=== PATIENT | female | born 2000 | race Hispanic/Latino ===

== ENCOUNTER 2019-02-07 12:44 | Emergency (ER) | payer OTHER ==
[~2019-02-07] VITALS: Ht 167.6 cm; Wt 44.9 kg
--- OUTSIDE RECORDS SUMMARY | 2019-02-07 12:47 | XMS REPORT | Encounter Summary ---
Author Organization Unknown Address [address] [place] [address] Phone [phone] Reason for Visit Immunization Instructions 1. Immunization Menveo D-[id number]-Dip (PF) 10 mcg-5 mcg/0.5 mL intramuscular kit 2. Counseling Discussion Note: None recorded. Patient educational handouts: No information available. Plan of Care Patient Instructions The meningococcal (say "nuo-zxf-vjs-[place]-kul") conjugate shot protects your child against a type of bacteria that causes meningitis and blood infections (sepsis). This vaccine is for children and for adults age 55 and younger. All children need two doses of the conjugate vaccine. They get one dose at age 11 or 12. They get the other at age 16. Teens and young adults ages 13 to 21 who haven't had these shots should get them as soon as possible. This includes college freshmen who live in dorms. If your child has a damaged or missing spleen or has certain immune system problems, he or she may need a booster dose every 5 years. Children at high risk Some children are at a higher risk than others to get meningitis and have severe problems from it. This includes children who have certain immune system problems or have a damaged or missing spleen. It also includes children who live in or will travel to areas of the world where the disease is common. Starting at age 2 months, these children need four separate doses of the MenHibrix vaccine before age 18 months. This vaccine protects against both meningitis and Hib infection. At age 2 years, at least one dose of meningococcal conjugate vaccine is needed. Children who remain at high risk need routine booster shots starting a few years after their first doses. The shot may cause pain in the area where the shot is given. It may also cause a fever. Follow-up care is a borjas part of your child's treatment and safety. Be sure to make and go to all appointments, and call your doctor if your child is having problems. It's also a good idea to know your child's test results and keep a list of the medicines your child takes. How can you care for your child at home? Give your child acetaminophen (Tylenol) or ibuprofen (Advil, Motrin) for fever or for pain at the shot area. Be safe with medicines. Read and follow all instructions on the label. Do not give aspirin to anyone younger than 20. It has been linked to Brien syndrome, a serious illness. Do not give a child two or more pain medicines at the same time unless the doctor told you to. Many pain medicines have acetaminophen, which is Tylenol. Too much acetaminophen (Tylenol) can be harmful. Put ice or a cold pack on the sore area for 10 to 20 minutes at a time. Put a thin cloth between the ice and your child's skin. When should you call for help? Call 911 anytime you think your child may need emergency care. For example, call if: Your child has a seizure. Your child has symptoms of a severe allergic reaction. These may include: Sudden raised, red areas (hives) all over the body. Swelling of the throat, mouth, lips, or tongue. Trouble breathing. Passing out (losing consciousness). Or your child may feel very lightheaded or suddenly feel weak, confused, or restless. Call your doctor now or seek immediate medical care if: Your child has symptoms of an allergic reaction, such as: A rash or hives (raised, red areas on the skin). Itching. Swelling. Belly pain, nausea, or vomiting. Your child has a high fever. Your child cries for 3 hours or more within 2 to 3 days after getting the shot. Watch closely for changes in your child's health, and be sure to contact your doctor if your child has any problems. Care instructions adapted under license by [facility]. This care instruction is for use with your licensed healthcare professional. If you have questions about a medical condition or this instruction, always ask your healthcare professional. [employer] disclaims any warranty or liability for your use of this information. Reminders Provider Appointments None recorded. Lab None recorded. Referral None recorded. Procedures None recorded. Surgeries None recorded. Imaging None recorded. Medications Name Start Date Flucelvax Quad 3444-2972 60 mcg (15 mcg x 4)/0.5 mL IM suspension IMMUNIZATION GIVEN Medications Administered None recorded. Vitals Height Weight BMI 4 ft 9 in 100 lbs 21.6 kg/m2 Lab Results None recorded. Allergies Code Code System Name Reaction Severity Status Onset NKDA Problems No Known Problems Procedures None recorded. Vaccine List Vaccine Type influenza, injectable, quadrivalent 02/21/2018 meningococcal MCV4O 09/08/20180.5 mL meningococcal MCV4P 09/30/2016 Social History None recorded. Past Encounters 09/08/2018 Immunization; Counseling TERRENCE Velez-C: [address] [place] [address], Ph. History of Present Illness Immunization Reported By: Patient HPI: Immunization Request (normal) no symptoms. Immunization eligibility questions No vaccines in last month, No reaction to previous vaccines:, No Known Allergies Note:18 YO female here for Meningitis vaccination Review of Systems:ROS as noted in the HPI Review of Systems Basic Reported By: Patient Constitutional: Constitutional: no fever Eyes: Eyes: no eye complaints Abrn-Ggrb-Sjhhj-Throat: Ears: no ear complaints. Nose: no nose/sinus problems. Mouth/Throat: no sore throat, no bleeding gums, no mouth complaints, no teeth problems Cardiovascular: Cardiovascular: no chest pain, no shortness of breath, no known heart murmur Respiratory: Respiratory: no cough, no wheezing, no shortness of breath Gastrointestinal: Gastrointestinal: no abdominal pain, no vomiting / diarrhea Genitourinary: Genitourinary: no urinary complaints, no discharge Musculoskeletal: Musculoskeletal: no muscle aches, no muscle weakness, no arthralgias/joint pain, no back pain Skin: Skin: no abnormal / changing mole, no jaundice, no rashes Neurologic: Neurologic: no loss of consciousness, no weakness, no numbness, no seizures, no dizziness, no headaches Notes: 18 YO female here for Meningitis vaccination Physical Exam Immunization Reported By: Patient General Appearance: General: well-developed, well-nourished, no acute distress Notes: 18 YO female here for Meningitis vaccination
--- OUTSIDE RECORDS SUMMARY | 2019-02-07 12:47 | XMS REPORT | Continuity of Care Document ---
Author Author [facility] Address Unknown Phone Unavailable Care Team Providers Care Health Information Technologist Name Role Phone [employer] Unavailable Unavailable Problems Problem Status Onset Date Classification Date Reported Comments Source Counseling 09/08/2018 Diagnosis 09/08/2018 [facility] Immunization 09/08/2018 Diagnosis 09/08/2018 [facility] FINGER PAIN Active [facility] Medications Medication Details Route Status Patient Instructions Ordering Provider Order Date Source medroxyprogesterone acetate 10 MG Oral Tablet medroxyprogesterone 10 mg tablet TAKE 1 TABLET BY MOUTH DAILY FOR 10 DAYS Active [facility] influenza A virus A/[place] (H3N2) antigen 0.03 MG/ML / influenza A virus A/HY3238/2015 (H1N1) antigen 0.03 MG/ML / influenza B virus B/ antigen 0.03 MG/ML / influenza B virus B/[facility]/HWONR-10-0239/2016 antigen 0.03 MG/ML Injectable Suspension [Flucelvax Quadrivalent 3143-9562] Flucelvax Quad 8963-1759 60 mcg (15 mcg x 4)/0.5 mL IM suspension IMMUNIZATION GIVEN Active [facility] Allergies, Adverse Reactions, Alerts No Known Medication Allergies Immunizations Immunization Date Given Site Status Last Updated Comments Source meningococcal MCV4O 09/08/2018 completed [facility] influenza, injectable, quadrivalent 02/21/2018 completed [facility] meningococcal MCV4P 09/30/2016 completed [facility] Results No Data Provided for This Section Pathology Reports No Data Provided for This Section Diagnostic Reports Report Value Date Source Hand AP lateral oblique Examination: Left hand, 3 views History: 719.44 Pain in Joint Involving Hand Comparison: None. Findings: Multiple views of the left hand show no acute bony fracture, joint dislocation, or suspicious osseous lesion. The soft tissues are unremarkable. IMPRESSION: No acute bony abnormality of the left hand. SL: 13 10/06/2013 [facility] Consultation Notes No Data Provided for This Section Discharge Summaries No Data Provided for This Section History and Physicals No Data Provided for This Section Vital Signs Vital Sign Value Date Comments Source Height 57 09/08/2018 [facility] Weight 100 09/08/2018 [facility] Encounters Location Location Details Encounter Type Encounter Number Reason For Visit Attending Provider ADM Date DC Date Status Source [facility] Out[facility] [id number] Huey Harmon 10/06/2013 10/07/2013 [facility] - [facility] - [id number] KALI AndreC: [address] [place] [address], Ph. [id number] Mary Holman 09/30/2016 [facility] - [facility] - [id number] MELLISSA VelezP-C: [address] [place] [address], Ph. [id number] Tisha Goldstein 09/08/2018 [facility] Procedures No Data Provided for This Section Assessment and Plan No Data Provided for This Section Plan of Care No Data Provided for This Section Social History No Data Provided for This Section Family History No Data Provided for This Section Advance Directives No Data Provided for This Section Functional Status No Data Provided for This Section
--- OUTSIDE RECORDS SUMMARY | 2019-02-07 12:47 | XMS REPORT | Encounter Summary ---
Author Organization Unknown Address [address] [place] [address] Phone [phone] Reason for Visit Immunization Instructions 1. Immunization Menactra (PF) 4 mcg/0.5 mL intramuscular solution 2. Counseling Discussion Note: None recorded. Patient educational handouts: No information available. Plan of Care Reminders Provider Appointments None recorded. Lab None recorded. Referral None recorded. Procedures None recorded. Surgeries None recorded. Imaging None recorded. Medications Name Start Date medroxyprogesterone 10 mg tablet TAKE 1 TABLET BY MOUTH DAILY FOR 10 DAYS Medications Administered None recorded. Vitals None recorded. Lab Results None recorded. Allergies None recorded. Problems None recorded. Procedures None recorded. Vaccine List Vaccine Type meningococcal MCV4P 09/30/2016 Social History None recorded. Past Encounters 09/30/2016 Immunization; Counseling KALI AndreC: [address] [place] [address], Ph. History of Present Illness Immunization Reported By: Patient HPI: Immunization Request (normal) no symptoms. Immunization eligibility questions No vaccines in last month, No reaction to previous vaccines:, No Known Allergies Review of Systems:ROS as noted in the HPI Review of Systems Basic Reported By: Patient Physical Exam Immunization Reported By: Patient General Appearance: General: well-developed, well-nourished, no acute distress
--- OUTSIDE RECORDS SUMMARY | 2019-02-07 12:47 | XMS REPORT | Summary of Care ---
Author Organization Unknown Address Unknown Phone Unavailable Encounter [facility]tr_alideepa([facility]) [id number] Date(s): 10/06/13 - 10/06/13 [facility] [address] Discharge Disposition: Home Physician Attending: Huey Harmon MD Reason for Visit FINGER PAIN Problem List No data available for this section Allergies, Adverse Reactions, Alerts No data available for this section Medications No data available for this section Medications Administered During Your Visit No data available for this section Immunizations No data available for this section
[2019-02-07] MEDS ORDERED: ONDANSETRON HCL 4 MG ORAL DISINTEGRATING TAB PO ONE (14:00)
[2019-02-07] MEDS ORDERED: KETOROLAC TROMETHAMINE 60 MG/2 ML VIAL IM ONE (14:00)
[2019-02-07 14:09] LABS: PREGNANCY TEST, URINE NEGATIVE (NEGATIVE)
[2019-02-07 14:21] LABS: BILIRUBIN,URINE NEGATIVE (NEGATIVE); KETONES,URINE TRACE (NEGATIVE); LEUKOCYTE ESTERASE ,URINE TRACE (NEGATIVE); NITRITE,URINE POSITIVE (NEGATIVE); PROTEIN,URINE DIPSTICK 3+ (NEGATIVE); URINE UROBILINOGEN 1 mg/dL (0.2 - 1)
[2019-02-07 14:22] LABS: COLOR,URINE RED (YELLOW)
[2019-02-07 14:23] LABS: CLARITY,URINE TURBID (CLEAR)
[2019-02-07] MEDS ORDERED: CEFTRIAXONE SOD 1 GM VIAL IM ONE (14:30)
[2019-02-07 14:51] LABS: BACTERIA,URINE FEW /HPF; EPITHELIAL CELLS,URINE FEW /LPF; RBC,URINE 21-50 /HPF (0-5); WBC,URINE (MAN) 0-5 /HPF (0-5)
[2019-02-07] MEDS ORDERED: KETOROLAC TROME10 MG PO (15:05)
[2019-02-07] MEDS ORDERED: CEFDINIR300 MG PO (15:05)
[2019-02-07 15:07] VITALS: BP 123/85
== END 2019-02-07 15:13 | disposition home or self-care (01) ==
LOC: ER 12:44
DX: R30.0 Dysuria (principal); N92.0 Excessive and frequent menstruation with regular cycle; N30.91 Cystitis, unspecified with hematuria
CPT/HCPCS: 81001; 81025; 99283; J0696; J1885; Q0162